=== PATIENT | male | born 1950 | race Caucasian/White ===

== ENCOUNTER 2016-07-18 23:45 | Emergency (ER) | payer MEDICARE, BC ==
[~2016-07-18] VITALS: Ht 170.2 cm; Wt 65.4 kg
[~2016-07-18 23:45] MED LIST: ANTIHEMOPHILIC FACTOR; D32000CA PO; DOXY1CAP91 PO; LORA-474 PO; LORTA5 PO; MELA5TAB8 PO; MULT-65 PO; OMEP20TA PO; ULTR50TA PO
[2016-07-19 00:16] VITALS: BP 133/97; PULSE 96; RESP 18; TEMP 98.8; O2SAT 98
[2016-08-27] MEDS ORDERED: OXYC1CAP PO (12:13)
[2016-09-07] MEDS ORDERED: OXYC-395 PO (07:55)
[2016-09-07] MEDS ORDERED: DOCU1CAP39 PO (07:55)
[2016-09-07] MEDS ORDERED: DOXY100C PO (11:59)
[2016-10-24] MEDS ORDERED: LORA1TAB12 PO (10:01)
[2016-10-24] MEDS ORDERED: VITA2000 PO (10:01)
[2016-10-24] MEDS ORDERED: MULT-65 PO (10:01)
[2016-10-24] MEDS ORDERED: OMEP20TA PO (10:01)
[2016-11-02] MEDS ORDERED: DOXY100C PO (13:36)
== END 2016-07-19 01:58 | disposition left against medical advice (07) ==
LOC: PHED 23:45
DX: R04.0 Epistaxis (principal)
CPT/HCPCS: 99281